=== PATIENT | female | born 1950 | race Caucasian/White ===

== ENCOUNTER 2019-09-26 12:45 | Emergency (ER) | payer MEDICARE, SELFPAY ==
[2019-09-26] VITALS (16 sets, daily range): BP systolic 137–177; BP diastolic 74–89; PULSE 69–88; RESP 12–18; TEMP 36.1; O2SAT 94–96
--- NOTE | 2019-09-26 13:08 | W.ED.GENAD ---
Discharge Plan Discharge Details Chief Complaint: HeadInjury Primary Care Provider: José Miguel Huertas ED Provider: Alejandro Foster Home Meds and New Rx's Prescriptions: No Action sumatriptan succinate [Imitrex] 100 mg Tablet 25 mg PO PRN PRNRF: 0 aspirin [Aspirin Low Dose] 81 mg Tablet,Delayed Release (Dr/Ec) 81 mg PO PRN PRNRF: 0 estradiol 0.025 mg/24 hr Patch Weekly 1 patch transdermal RF: 0 sertraline 25 mg Tablet 12.5 mg PO DAILY RF: 0 progesterone micronized [Prometrium] 100 mg Capsule RF: 0 Discharge Data Discharge Date/Time-TO BE ENTERED AT DEPARTURE: 09/26/19 16:05 Medical Decision Making 69-year-old woman who presented after an accidental fall while from slipping on ice with an impact to her left anterior orbit. Initial evaluation significant for soft tissue swelling of the left anterior orbit occluding her eye. She had described having initial diplopia and change in visual acuity immediately after the injury prior to soft tissue swelling. However because of extensive contusion/swelling, initial eye exam limited until documentation by head CT of no primary globe injury. Emergent head injury CT ordered and diagnostic for an inferior orbital wall fracture with depression to the maxillary sinus. This significant man of hemorrhage associated with that fracture which extends into the inferior orbit. No evidence of proptosis or mechanical pressure on globe from hemorrhage by CT. After CT imaging was reviewed, ocular labs significant for patient with no vision from her left eye, extraocular motions intact pupil midrange; no significant proptosis. Reviewed case with trauma attending at [facility] who also reviewed head imaging. Consensus was unlikely visual change from the retrobulbar blood and recommended transport without a lateral canthotomy. Discussed clinical and diagnostic findings with patient and her spouse. Emergently [place] [facility] [place] and management including emergent ophthalmology evaluation. Patient remained stable here multiple re-evaluations prior to transfer. Medical Records Medical records reviewed: Yes I reviewed the patient's medical records. Imaging Data Radiologic Study: Attestation: I personally reviewed and interpreted this imaging study as follows: Imaging: CT Scan (Head CT) My impression: Inferior orbital wall fracture with depression into the left maxillary sinus. Significant hematoma with extension of hemorrhage into the inferior left orbit. Radiologist's impression: Same ECG Data Attestation: I personally reviewed and interpreted this ECG (s) as follows: Prior ECG tracings: available for review Interpretation: NSR HPI 69-year-old woman with a past medical history which includes migraine headaches, scoliosis, SVT. Transported here via EMS after accidentally falling this morning with a anterior head impact. She describes walk around to the back of her car when she slipped on ice and fell forward with an impact to her right head. She noted focal right periorbital tenderness and also had initial diplopia. She has since had increased soft tissue swelling around her right eye with now inability to open her eye. She also notes a mild worsening headache. She is not on blood thinners. She denies any significant neck pain, back pain, extremity injury, chest wall injury, abdominal pain, or focal extremity weakness. General Date/Time Provider Initiated Documentation: 09/26/19 12:52. Related Data Home Medications Medication Instructions Recorded Confirmed aspirin [Aspirin Low Dose] 81 mg PO PRN PRN 09/26/19 09/26/19 estradiol 1 patch TRANSDERMAL 09/26/19 progesterone micronized 09/26/19 [Prometrium] sertraline 12.5 mg PO DAILY 09/26/19 09/26/19 sumatriptan succinate [Imitrex] 25 mg PO PRN PRN 09/26/19 09/26/19 Allergies Allergy/AdvReac Type Severity Reaction Status Date / Time No Known Allergies Allergy Unverified 09/26/19 15:20 General Stated Complaint: HeadInjury GLENN: 3 Review of Systems All systems reviewed & are unremarkable except as noted in HPI and below PFSH Medical History (Updated 09/26/19 @ 12:46 by Mary Stockton) Migraine headache (Chronic) Scoliosis (Acute) SVT (supraventricular tachycardia) (Chronic) Surgical History (Updated 09/26/19 @ 12:46 by Mary Stockton) History of section (Chronic) History of hernia repair (Chronic) History of tonsillectomy (Chronic) Social History Smoking/Tobacco Use Status: Never Drug use: Never Do you feel safe at home: Yes Do you feel safe in your relationship?: Yes Exam Narrative Exam Narrative: Nursing note and vital signs have been reviewed and noted. GENERAL: alert, active, no acute distress, well -hydrated, well-nourished HEENT: Significant left periorbital soft tissue swelling with inability to initially visualize left eye because of soft tissue swelling. There is surrounding tenderness in the orbital ridge otherwise no significant tenderness deformity of the left forehead, gnosticist region, or maxillary ridge. No other significant injury appreciated. EOMI, conjunctiva clear, external ears/canals normal, nasal mucosa normal NECK: Nontender, supple, full range of motion with no associated worsening pain., no mass, normal lymphadenopathy, no thyromegaly CARDIOVASCULAR: RRR, no murmurs, nl pulses, no edema PULMONARY: nl effort, no audible wheezing or stridor, nl breath sounds with no focal deficit. no chest wall tenderness ABDOMEN: soft, non-tender, non-distended, no mass, no organomegaly EXTREMITY: normal muscle tone, all joints with FROM, no deformity or tenderness SKIN: no exanthem appreciated NEURO: gross motor exam normal, normal stance and gait PSYCH: alert and oriented, Course Vital Signs Vital signs: Vital Signs Temperature 97.0 F L 09/26/19 12:37 Pulse 88 09/26/19 12:37 Respiratory Rate 16 09/26/19 12:37 Blood Pressure 177/89 H 09/26/19 12:37 Pulse Oximetry 96 09/26/19 12:37 Temperature 97.0 F L 09/26/19 12:37 Temperature Source Temporal Artery Scan 09/26/19 12:37 Pulse 80 09/26/19 12:43 Respiratory Rate 18 09/26/19 12:43 Respiratory Effort Non-Labored 09/26/19 12:55 Respiratory Depth Normal 09/26/19 12:55 Respiratory Pattern Normal 09/26/19 12:55 Blood Pressure 170/86 H 09/26/19 12:43 Pulse Oximetry 96 09/26/19 12:43 Oxygen Delivery Method Room Air 09/26/19 12:43 Oxygen Flow Rate 0 09/26/19 12:43 Pain Level 4 09/26/19 12:55
[2019-09-26] MEDS: Normal Saline 1,000 ML 500 ML IV (13:51)
[2019-09-26] MEDS: Prochlorperazine 10 MG/2 ML VIAL 5 MG IVP (13:55)
--- NOTE | 2019-09-26 14:11 | DI.CT_ITS ---
EXAM: CT HEAD WO CLINICAL HISTORY: HEAD CONTUSION S/P FALL TECHNIQUE: Noncontrast COMPARISON: No exams were available for comparison FINDINGS: No intracranial hemorrhage or skull fracture is seen. The ventricles are normal in size. There is a large amount of air as well as hematoma surrounding the left orbit. There is hemorrhage within the left maxillary sinus. There is air within the orbit as well as a fracture of the inferior orbital wa ll with inferior displacement. The inferior rectus muscle appears intact. The globe appears intact. There is left proptosis. The medial orbital wall and zygoma appear intact. The mastoid air cells appear clear. IMPRESSION: Fracture of the inferior orbital wall with depression into the left maxillary sinus. There is a larg e amount of surrounding hematoma with extension of hemorrhage into the inferior left orbit.
== END 2019-09-26 16:05 ==
LOC: ER 14:55
PROVIDERS: Emergency Provider Emergency Medicine; PCP Family Medicine
DX: H53.2 Diplopia (principal); R51 Headache; R22.0 Localized swelling, mass and lump, head; S02.832A Fracture of medial orbital wall, left side, initial encounter for closed fracture; H05.232 Hemorrhage of left orbit; W00.0XXA Fall on same level due to ice and snow, initial encounter
CPT/HCPCS: 96374; 99285; 70450; J0780; L0172